=== PATIENT | female | born 1995 | race Asian ===

== ENCOUNTER 2018-03-06 14:31 | Emergency (ER) | payer SELFPAY ==
[~2018-03-06] VITALS: Ht 149.9 cm; Wt 43.4 kg
[2018-03-06 14:54] VITALS: BP 134/80
[2018-03-06 15:25] LABS: URINE HCG NEGATIVE (NEG)
== END 2018-03-06 15:51 | disposition home or self-care (01) ==
LOC: ER 14:32
DX: R11.0 Nausea (principal); R45.0 Nervousness
CPT/HCPCS: 81025; 99283

== ENCOUNTER 2018-05-05 21:24 | Emergency (ER) | payer MEDICAID, OTHER ==
[~2018-05-05] VITALS: Ht 149.9 cm; Wt 42.0 kg
[2018-05-05 22:17] LABS: BASOPHILS % (AUTO) 0.4 % (0-1); EOSINOPHILS # (AUTO) 0.3 X10'3 (0-0.9); EOSINOPHILS % (AUTO) 2.3 % (0-6); LYMPHOCYTES # (AUTO) 2.3 X10'3 (1.1-4.8); LYMPHOCYTES % (AUTO) 20.2 % (21-51); MEAN CORPUSCULAR HEMOGLOBIN 21.1 PG (27.0-31.0); MEAN CORPUSCULAR HGB CONC 31.6 g/dL (33.0-36.5); MEAN CORPUSCULAR VOLUME 66.8 FL (78-98); MEAN PLATELET VOLUME 10.1 FL (7.4-10.4); MONOCYTES # (AUTO) 0.6 X10'3 (0-0.9); MONOCYTES % (AUTO) 5.3 % (2-12); NEUTROPHILS # (AUTO) 8.1 X10'3 (1.8-7.7); NEUTROPHILS % (AUTO) 71.8 % (42-75); PLATELET COUNT 283 X10'3 (140-440); RED BLOOD COUNT 5.69 X10'6 (4.20-5.60); RED CELL DISTRIBUTION WIDTH 14.9 % (11.5-14.5); WHITE BLOOD COUNT 11.2 X10'3 (4.5-11.0)
[2018-05-05 22:27] LABS: ALANINE AMINOTRANSFERASE 19 U/L (12-78); ALBUMIN 4.4 G/DL (3.4-5.0); ALKALINE PHOSPHATASE 58 IU/L (46-116); ANION GAP 12 (8-16); ASPARTATE AMINO TRANSFERASE 18 U/L (10-37); BILIRUBIN,TOTAL 0.3 MG/DL (0.1-1.0); BLOOD UREA NITROGEN 9 MG/DL (7-18); BUN/CREATININE RATIO 15.8 (6.6-38.0); CALCIUM 9.8 MG/DL (8.5-10.1); CHLORIDE 100 MMOL/L (99-107); CREATININE 0.57 MG/DL (0.40-0.90); GLUCOSE 77 MG/DL (70-104); POTASSIUM 3.7 MMOL/L (3.5-5.1); SODIUM 135 MMOL/L (135-145); TOTAL CARBON DIOXIDE 23.5 MMOL/L (24-32); TOTAL PROTEIN 8.7 G/DL (6.4-8.2); eGFR > 90 ML/MIN
[2018-05-05 22:29] LABS: PROTHROMBIN TIME 10.5 SECONDS (9.0-12.0)
[2018-05-05] MEDS ORDERED: meclizine 12.5mg tablet PO ONE (22:45)
[2018-05-05] MEDS ORDERED: DOXY1TAB6 PO (22:45)
[2018-05-05] MEDS ORDERED: mag hydrox/Alum hydrox/simeth 30ml oral suspension PO ONE (22:45)
[2018-05-05 22:58] LABS: BETA HCG,QUANTITATIVE 88666 mIU/ml
[2018-05-05 23:15] VITALS: BP 122/71
[2018-05-05 23:55] LABS: MICROCYTOSIS 2+; PLATELET ESTIMATE NORMAL
== END 2018-05-05 23:17 | disposition home or self-care (01) ==
LOC: ER 21:24
DX: O26.891 Other specified pregnancy related conditions, first trimester (principal); R10.13 Epigastric pain; O21.9 Vomiting of pregnancy, unspecified; Z79.899 Other long term (current) drug therapy; Z3A.01 Less than 8 weeks gestation of pregnancy
CPT/HCPCS: 36415; 80053; 84702; 85025; 85610; 99283; J8597

== ENCOUNTER 2023-04-11 01:13 | Emergency (ER) | payer MEDICAID, OTHER ==
[~2023-04-11] VITALS: Ht 149.9 cm; Wt 54.5 kg
[~2023-04-11 01:13] MED LIST: DOXY1TAB6 PO
[2023-04-11] MEDS ORDERED: NO HOME MEDS (01:45)
[2023-04-11 02:00] LABS: BASOPHILS # (AUTO) 0.1 X10'3 (0-0.2); BASOPHILS % (AUTO) 1.3 % (0-1); EOSINOPHILS # (AUTO) 0.5 X10'3 (0-0.9); EOSINOPHILS % (AUTO) 5.6 % (0-6); HEMATOCRIT 38.1 % (35.0-45.0); LYMPHOCYTES # (AUTO) 2.7 X10'3 (1.1-4.8); MEAN CORPUSCULAR HEMOGLOBIN 20.6 PG (27.0-31.0); MEAN CORPUSCULAR HGB CONC 31.5 g/dL (33.0-36.5); MEAN CORPUSCULAR VOLUME 65.5 FL (78-98); MEAN PLATELET VOLUME 8.8 FL (7.4-10.4); MONOCYTES # (AUTO) 0.6 X10'3 (0-0.9); MONOCYTES % (AUTO) 6.5 % (2-12); NEUTROPHILS # (AUTO) 5.4 X10'3 (1.8-7.7); NEUTROPHILS % (AUTO) 57.6 % (42-75); PLATELET COUNT 266 X10'3 (140-440); RED BLOOD COUNT 5.81 X10'6 (4.20-5.60); WHITE BLOOD COUNT 9.3 X10'3 (4.5-11.0)
[2023-04-11 02:05] LABS: URINE HCG NEGATIVE (NEG)
[2023-04-11 02:07] LABS: ALANINE AMINOTRANSFERASE 14 U/L (12-78); ALBUMIN 3.9 G/DL (3.4-5.0); ALBUMIN/GLOBULIN RATIO 0.8 (1.1-1.5); ALKALINE PHOSPHATASE 72 IU/L (46-116); ANION GAP 7 (8-16); ASPARTATE AMINO TRANSFERASE 18 U/L (10-37); BILIRUBIN,TOTAL 0.1 MG/DL (0.1-1.0); BLOOD UREA NITROGEN 14 MG/DL (7-18); BUN/CREATININE RATIO 21.2 (10.0-20.0); CALCIUM 9.1 MG/DL (8.5-10.1); CHLORIDE 103 MMOL/L (99-107); CREATININE 0.66 MG/DL (0.40-0.90); GLUCOSE 109 MG/DL (70-104); POTASSIUM 3.8 MMOL/L (3.5-5.1); SODIUM 138 MMOL/L (135-145); TOTAL CARBON DIOXIDE 28.5 MMOL/L (24-32); TOTAL PROTEIN 8.6 G/DL (6.4-8.2); eCRCL 87 ML/MIN; eGFR > 90 ML/MIN
[2023-04-11 02:16] LABS: THYROID STIMULATING HORMONE 1.78 ulU/ml (0.34-4.50)
[2023-04-11 02:18] LABS: ETHANOL < 10 MG/DL (<10)
[2023-04-11 02:18] LABS: URINE AMPHETAMINE SCREEN NEGATIVE (Neg); URINE BARBITUATE SCREEN NEGATIVE (Neg); URINE BENZODIAZEPINES SCREEN NEGATIVE (Neg); URINE CANNABINOID SCREEN NEGATIVE (Neg); URINE COCAINE SCREEN NEGATIVE (Neg); URINE METHADONE SCREEN NEGATIVE (Neg); URINE OPIATE SCREEN NEGATIVE (Neg); URINE PHENCYCLIDINE SCREEN NEGATIVE (Neg)
[2023-04-11 02:39] LABS: BURR CELLS FEW; ELLIPTOCYTES FEW; HYPOCHROMASIA 1+; MICROCYTOSIS 2+; PLATELET ESTIMATE NORMAL; SCHISTOCYTES FEW
[2023-04-11 08:28] VITALS: BP 122/81; PULSE 105; RESP 17; TEMP 98.7; O2SAT 99
== END 2023-04-11 16:35 | disposition home or self-care (01) ==
LOC: ER 01:14
DX: Z13.30 Encounter for screening examination for mental health and behavioral disorders, unspecified (principal); Z20.822 Contact with and (suspected) exposure to COVID-19
CPT/HCPCS: 36415; 80053; 80305; 80320; 81025; 84443; 85008; 85025; 87811; 99285

== ENCOUNTER 2025-02-25 18:50 | Emergency (ER) | payer MEDICAID ==
[~2025-02-25] VITALS: Ht 149.9 cm; Wt 58.5 kg
[~2025-02-25 18:50] MED LIST changes: -DOXY1TAB6 PO; +NO HOME MEDS
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
[2025-02-25] MEDS: ibuprofen tablet 400 MG TABLET PO ONE (20:49)
[2025-02-25 20:51] VITALS: BP 122/78; PULSE 76; RESP 16; TEMP 98; O2SAT 96
== END 2025-02-25 20:53 | disposition home or self-care (01) ==
LOC: ER 18:51
DX: R22.0 Localized swelling, mass and lump, head (principal); Y04.8XXA Assault by other bodily force, initial encounter; Y93.89 Activity, other specified; Y92.89 Other specified places as the place of occurrence of the external cause; Y99.8 Other external cause status
CPT/HCPCS: 99283